=== PATIENT | male | born 1965 | race Caucasian/White ===

== ENCOUNTER 2016-10-11 15:07 | Emergency (ER) | payer SELFPAY ==
[2016-10-11 17:08] VITALS: BP 144/93
--- NOTE | 2016-10-11 18:41 | UC ---
jesus Arrieta Timothy, scribed for Allison Luu DO on 10/11/16 at 1601 . Headache HPI - HPI Summary HPI Summary: Quan Baker is a 51 yo male presenting to [facility] with intermittent 6/10 frontal PACHECO behind his eyes and trouble focusing his vision for the past 2-3 days. He states he feels "antsy and edgy". He states that he felt like his blood pressure was "racing" earlier. He has a strange feeling in his chest that he is struggling to describe "feels like it is working harder, I dont know how to explain it." He denies any blurry or double vision. He denies any fever, chills , sore throat, ear ache, CP, SOB. He states he has allergies, but is not experiencing Sx right now. He notes that he has had high blood pressure for the past 2 years, and has not changed blood pressure medications. He also notes that he has felt lightheaded when he stands up at baseline since he started htn meds 2 years ago. However, he stated that lightheadedness has been significantly worse over the past 2 days and constant. He states that he feels like he will faint. He notes that his [id number] dog nipped him on the back of his leg, but the dog is UTD on all shots. His MHx includes HTN, anxiety , seasonal allergies. - History Of Current Complaint Chief Complaint: UCHeadache Stated Complaint: TROUBLE FOCUSING, HEART IS RACING Time Seen by Provider: 10/11/16 16:06 Hx Obtained From: Patient Onset/Duration: Gradual Onset, Lasting Days, Still Present Onset Of Symptoms: Gradual Initially Headache Was: Initial Pain Scale(0-10)= - 6 Currently Pain Is: Current Pain Scale(0-10)= - 6 Pain Intensity: 6 Pain Scale Used: 0-10 Numeric Timing: Constant Character: Unable To Describe Location of Headache: Frontal - behind eyes Aggravating Factor: Nothing Allevating Factors: Nothing Associated Signs And Symptoms: Positive: Dizziness, Visual Changes - difficulty focusing, Other (Noted In Comments) - disoriented, trouble focusing - Allergies/Home Medications Allergies/Adverse Reactions: Allergies Allergy/AdvReac Type Severity Reaction Status Date / Time No Known Allergies Allergy Verified 10/11/16 17:45 PMH/Surg Hx/FS Hx/Imm Hx Cardiovascular History: Hypertension Psychological History: Anxiety - Surgical History Surgical History: None - Family History Known Family History: Positive: Cardiac Disease, Hypertension, Diabetes - Social History Occupation: Employed Full-time Alcohol Use: Rare Substance Use Type: None Smoking Status (MU): Never Smoked Tobacco Review of Systems Constitutional: Negative Skin: Negative Eyes: Other - difficulty focusing ENT: Negative Respiratory: Negative Cardiovascular: Negative Gastrointestinal: Negative Genitourinary: Negative Motor: Negative Neurovascular: Negative Musculoskeletal: Negative Neurological: Headache, Other - lightheadedness - baseline Psychological: Other - "antsy and edgy" All Other Systems Reviewed And Are Negative: Yes Physical Exam Triage Information Reviewed: Yes Appearance: Well-Appearing, No Pain Distress, Well-Nourished Vital Signs: Initial Vital Signs Temp 99.4 F 10/11/16 15:09 Pulse 78 10/11/16 15:09 Resp 20 10/11/16 15:09 BP 155/76 10/11/16 15:09 Pulse Ox 100 10/11/16 15:09 Vital Signs Reviewed: Yes Eyes: Positive: Conjunctiva Clear. Negative: Discharge ENT: Positive: Hearing grossly normal. Negative: Muffled/hoarse voice Neck exam: Normal Neck: Positive: Supple Respiratory: Positive: Lungs clear, Normal breath sounds, No respiratory distress Cardiovascular: Positive: RRR, No Murmur Musculoskeletal Exam: Normal Neurological: Positive: Alert, Muscle Tone Normal, Other: - A&Ox3, CN II-XII INTACT, SENSORY MOTOR INTACT, REFLEXES INTACT, NO CEREBELLAR SIGNS, FACIAL SYMMETRY, NEGATIVE ROMBERG, NORMAL GAIT Psychological Exam: Normal Psychological: Positive: Age Appropriate Behavior Skin Exam: Normal Skin: Positive: Other - warm, dry, normal color. Negative: rashes Diagnostics - EKG Cardiac Rate: NL - 1634: NSR @ 60 BPM, no ectopy, no ST changes, incomplete LBBB Ectopy: None Re-Evaluation - Re-Evaluation First Eval Re-Evaluation Time: 16:43 Change: Unchanged Comment: Discussed EKG and lab results with Pt. He is agreeable to current course of Tx. Headache Course/Dx - Course Course Of Treatment: Quan Baker is a 51 yo male presenting to [facility] with 6/10 frontal PACHECO behind his eyes and difficulty focusing his vision, accompanied by some lightheadedness which is his baseline. Pt BP noted at 155/76. Pt medication list reviewed this visit. His EKG suggests NSR with incomplete LBBB. After clinical examination and review of his EKG and lab studies, he was advised to present to [facility]. Pt was offered EMS for transport, which he declines. He will be transferred to [facility] by private car. - Differential Dx/Diagnosis Differential Diagnosis/HQI/PQRI: Other - anxiety, acs Provider Diagnoses: dizziness - Physician Notifications Discussed Patient Care With: Pastora Rizo - Discussed Pt condition, Pt will be seen at [facility] Time Discussed With Above Provider: 17:00 Instructed by Provider To: Transfer - to [facility] Discharge - Discharge Plan Condition: Stable Disposition: TRANS [facility]IGHER [facility] Discharge Disposition Comment: transfer to [facility] by private car Referrals: Carol Silverman MD [Primary Care Provider] - 2 Days Additional Instructions: Please follow up with your primary care physician regarding your visit to urgent care today. Return to urgent care or the emergency department with any new or recurring symptoms. The documentation as recorded by the jesus banks Timothy accurately reflects the service I personally performed and the decisions made by me, Allison Luu DO.
== END 2016-10-11 17:09 | disposition short-term general hospital (02) ==
LOC: UCEAST 15:07
DX: R42 Dizziness and giddiness (principal); I10 Essential (primary) hypertension; F41.9 Anxiety disorder, unspecified; J30.2 Other seasonal allergic rhinitis
CPT/HCPCS: 81003; 93005; 99212; G0463

== ENCOUNTER 2016-10-11 17:36 | Emergency (ER) | payer SELFPAY ==
[2016-10-11 21:43] LABS: Hematocrit 49 % (42-52); Hemoglobin 16.5 g/dl (14.0-18.0); Mean Corpuscular HGB Conc 34 g/dl (31-36); Mean Corpuscular Hemoglobin 30 pg (27-31); Mean Corpuscular Volume 87 fL (80-94); Mean Platelet Volume 8 um3 (7.4-10.4); Red Blood Count 5.57 10^6/ul (4.0-5.4); Red Cell Distribution Width 13 % (10.5-15); White Blood Count 9.5 10^3/ul (3.5-10.8)
[2016-10-11 22:01] LABS: Albumin 4.4 g/dL (3.2-5.2); BUN/Creatinine Ratio 15.9 (8-20); Calcium 9.8 mg/dL (8.6-10.3); EGFR African American 94.5 (>60); EGFR Non-African American 73.5 (>60); Globulin 3.1 g/dL (2-4); Magnesium 1.8 mg/dL (1.9-2.7); Potassium 3.6 mmol/L (3.5-5.0); Total Bilirubin 0.7 mg/dL (0.2-1.0); Total Protein 7.5 g/dL (6.4-8.9)
[2016-10-11 22:26] LABS: TSH (Thyroid Stimulating Horm) 2.23 mcIU/mL (0.34-5.60)
[2016-10-11 22:37] VITALS: BP 127/69
[2016-10-11] MEDS ORDERED: Potassium Chlor TAB* 20 MEQ TAB.ER PO ONE (22:47)
[2016-10-11] MEDS ORDERED: Magnesium Oxide TAB* 400 MG PO ONE (22:47)
--- NOTE | 2016-10-11 22:51 | ED ---
José Arrieta Alfonso, scribed for Holly Lujan MD on 10/11/16 at 2108 . Complex/Multi-Sys Presentation - HPI Summary HPI Summary: This patient is a 51 year old M presenting to [facility] with a chief complaint of it is hard for me to focus since 1430 today. The CC is worse today. Pt rates the pain 0/10 in severity. Symptoms alleviated by eating and drinking. Pt reports frontal headache, lightheadedness, blurry vision secondary to exertion, and urinary retention. Pt denies CP, fever, and chills. Patient lives alone. PCP is Dr. Carol Silverman. PMHx of HTN. - History Of Current Complaint Chief Complaint: EDGeneral Time Seen by Provider: 10/11/16 20:51 Hx Obtained From: Patient Onset/Duration: Sudden Onset, Lasting Hours - 1430 today, Still Present Timing: Constant Severity Currently: Moderate Severity Initially: Moderate Alleviating Factor(s): eating and drinking Associated Signs And Symptoms: Positive: Other - . Pt reports frontal headache, lightheadedness, blurry vision secondary to exertion, and urinary retention. Pt denies CP, fever, and chills. - Allergies/Home Medications Allergies/Adverse Reactions: Allergies Allergy/AdvReac Type Severity Reaction Status Date / Time No Known Allergies Allergy Verified 10/11/16 17:45 PMH/Surg Hx/FS Hx/Imm Hx Cardiovascular History: Reports: Hx Hypertension Denies: Hx Congestive Heart Failure Sensory History: Denies: Hx Deafness Opthamlomology History: Denies: Hx Legally Blind Infectious Disease History: No Infectious Disease History: Denies: Hx Clostridium Difficile, Hx Hepatitis, Hx Human Immunodeficiency Virus (HIV), Hx of Known/Suspected MRSA, Hx Shingles, Hx Tuberculosis, Hx Known/ Suspected VRE, Hx Known/Suspected VRSA, History Other Infectious Disease, Traveled Outside the [place] in Last 30 Days - Family History Known Family History: Positive: Cardiac Disease, Hypertension, Diabetes - Social History Lives: Alone Alcohol Use: Rare Substance Use Type: Reports: None Smoking Status (MU): Never Smoked Tobacco Review of Systems Negative: Fever, Chills Positive: Blurred Vision - secondary to exertion Negative: Chest Pain Positive: other - Positive urinary retention. Neurological: Other - Positive frontal headache, and lightheadedness. All Other Systems Reviewed And Are Negative: Yes Physical Exam Triage Information Reviewed: Yes Vital Signs On Initial Exam: Initial Vitals Temp Pulse Resp BP Pulse Ox 98.2 F 54 16 155/92 100 10/11/16 17:40 10/11/16 17:40 10/11/16 17:40 10/11/16 17:40 10/11/16 17:40 Vital Signs Reviewed: Yes Appearance: Positive: Well-Appearing, No Pain Distress Skin: Positive: Warm, Skin Color Reflects Adequate Perfusion, Dry Eyes: Positive: EOMI, MARY ENT: Positive: Pharynx normal, TMs normal Neck: Positive: Supple, Nontender Respiratory/Lung Sounds: Positive: Clear to Auscultation, Breath Sounds Present. Negative: Rales, Rhonchi, Wheezes Cardiovascular: Positive: RRR, Other - No gallop. Negative: Murmur, Rub Abdomen Description: Positive: Nontender, Soft, Other: - No rebound. Negative: Distended, Guarding Bowel Sounds: Positive: Present Musculoskeletal: Positive: Strength/ROM Intact, Other - No edema Neurological: Positive: Sensory/Motor Intact, Alert, Oriented to Person Place, Time, CN Intact II-III - 2-12 Psychiatric: Positive: Affect/Mood Appropriate - Humberto Coma Scale Coma Scale Total: 15 Diagnostics - Vital Signs Vital Signs Temp Pulse Resp BP Pulse Ox 10/11/16 20:12 67 93 10/11/16 19:40 98.6 F 55 16 159/87 100 10/11/16 17:40 98.2 F 54 16 155/92 100 - Laboratory Lab Results: Lab Results 10/11/16 10/11/16 Range/Units 21:30 21:30 WBC 9.5 (3.5-10.8) 10^3/ul RBC 5.57 H (4.0-5.4) 10^6/ul Hgb 16.5 (14.0-18.0) g/dl Hct 49 (42-52) % MCV 87 (80-94) fL MCH 30 (27-31) pg MCHC 34 (31-36) g/dl RDW 13 (10.5-15) % Plt Count 205 (150-450) 10^3/ul MPV 8 (7.4-10.4) um3 Neut % (Auto) 74.6 (38-83) % Lymph % (Auto) 18.8 L (25-47) % [place] % (Auto) 5.0 (1-9) % Eos % (Auto) 0.7 (0-6) % Baso % (Auto) 0.9 (0-2) % Absolute Neuts (auto) 7.1 (1.5-7.7) 10^3/ul Absolute Lymphs (auto) 1.8 (1.0-4.8) 10^3/ul Absolute Monos (auto) 0.5 (0-0.8) 10^3/ul Absolute Eos (auto) 0.1 (0-0.6) 10^3/ul Absolute Basos (auto) 0.1 (0-0.2) 10^3/ul Absolute Nucleated RBC 0 10^3/ul Nucleated RBC % 0 Sodium 137 (133-145) mmol/L Potassium 3.6 (3.5-5.0) mmol/L Chloride 100 L (101-111) mmol/L Carbon Dioxide 29 (22-32) mmol/L Anion Gap 8 (2-11) mmol/L BUN 17 (6-24) mg/dL Creatinine 1.07 (0.67-1.17) mg/dL Est GFR ( Amer) 94.5 (>60) Est GFR (Non-Af Amer) 73.5 (>60) BUN/Creatinine Ratio 15.9 (8-20) Glucose 92 (70-100) mg/dL Calcium 9.8 (8.6-10.3) mg/dL Magnesium 1.8 L (1.9-2.7) mg/dL Total Bilirubin 0.70 (0.2-1.0) mg/dL AST 22 (13-39) U/L ALT 22 (7-52) U/L Alkaline Phosphatase 55 (34-104) U/L Troponin I 0.00 (<0.04) ng/mL Total Protein 7.5 (6.4-8.9) g/dL Albumin 4.4 (3.2-5.2) g/dL Globulin 3.1 (2-4) g/dL Albumin/Globulin Ratio 1.4 (1-3) TSH 2.23 (0.34-5.60) mcIU/mL Result Diagrams: 10/11/16 21:30 10/11/16 21:30 Lab Statement: Any lab studies that have been ordered have been reviewed, and results considered in the medical decision making process. - EKG 1755 Cardiac Rate: NL - BPM 66 EKG Rhythm: Sinus Rhythm EKG Interpretation: No Q-waves. No ST elevation Complex Multi-Symp Course/Dx Course Of Treatment: 51 yo male with not feeling well/ almost a near syncope feeling with normal labs slightly borderline low potassium and low mag both of which were repleted no headache no chest pain pt will followup with pmd - Diagnoses Provider Diagnoses: Malaise Discharge - Discharge Plan Condition: Stable Disposition: HOME Referrals: Carol Silverman MD [Primary Care Provider] - The documentation as recorded by the José banks Alfonso accurately reflects the service I personally performed and the decisions made by me, Holly Lujan MD.
== END 2016-10-11 23:16 | disposition home or self-care (01) ==
LOC: ED 17:36
DX: H53.8 Other visual disturbances (principal); R53.81 Other malaise
CPT/HCPCS: 36415; 80053; 83735; 84443; 84484; 85025; 93005; 99283; A9270-GY

== ENCOUNTER 2017-08-10 08:17 | Emergency (ER) | payer SELFPAY ==
[2017-08-10 08:32] VITALS: BP 140/88
--- NOTE | 2017-08-10 09:30 | UC ---
Skin Complaint HPI - HPI Summary HPI Summary: tick bite right abd removed and tick brought in - History of Current Complaint Chief Complaint: UCSkin Time Seen by Provider: 08/10/17 09:09 Stated Complaint: TICK BITE Hx Obtained From: Patient Onset Severity: Mild Current Severity: None Pain Intensity: 0 Pain Scale Used: 0-10 Numeric Location: Other - see HPI Aggravating Factor(s): Nothing Alleviating Factor(s): Nothing - Allergy/Home Medications Allergies/Adverse Reactions: Allergies Allergy/AdvReac Type Severity Reaction Status Date / Time No Known Allergies Allergy Verified 08/10/17 08:26 Home Medications: Home Medications Loratadine/Pseudoephedrine [Claritin-D 24 Hour Tablet] 1 tab PO DAILY PRN [History Confirmed 08/10/17] Review of Systems Constitutional: Negative Skin: Negative Eyes: Negative ENT: Negative Respiratory: Negative Cardiovascular: Negative Gastrointestinal: Negative Genitourinary: Negative Motor: Negative Neurovascular: Negative Musculoskeletal: Negative Neurological: Negative Psychological: Negative Is Patient Immunocompromised?: No All Other Systems Reviewed And Are Negative: Yes PMH/Surg Hx/FS Hx/Imm Hx Previously Healthy: Yes Cardiovascular History: Hypertension - Surgical History Surgical History: None - Family History Known Family History: Positive: Cardiac Disease, Hypertension, Diabetes - Social History Alcohol Use: Rare Substance Use Type: None Smoking Status (MU): Never Smoked Tobacco Physical Exam Triage Information Reviewed: Yes Appearance: Well-Appearing, No Pain Distress, Well-Nourished Vital Signs: Initial Vital Signs Temp 98.3 F 08/10/17 08:28 Pulse 63 08/10/17 08:28 Resp 18 08/10/17 08:28 BP 140/88 08/10/17 08:28 Pulse Ox 98 08/10/17 08:28 Vital Signs Reviewed: Yes Eyes: Positive: Conjunctiva Clear ENT: Positive: Hearing grossly normal. Negative: Nasal congestion, Nasal drainage, Trismus, Muffled voice, Hoarse voice Neck: Positive: Nontender, No Lymphadenopathy Respiratory: Positive: Lungs clear, Normal breath sounds, No respiratory distress Cardiovascular: Positive: RRR, No Murmur Musculoskeletal: Positive: ROM Intact, No Edema Neurological: Positive: Alert Psychological Exam: Normal Skin Exam: Other - many mole - one dark/irregular/black one on left breast that appears suspicous advised to see restrike hammer operator Course/Dx - Course Course Of Treatment: tick -nymph form /engorged - Diagnoses Provider Diagnoses: tick bite Discharge - Sign-Out/Discharge Documenting (check all that apply): Discharge/Admit/Transfer - Discharge Plan Condition: Stable Disposition: HOME Prescriptions: DOXYcycline CAP(*) [DOXYcycline 100MG CAP(*)] 200 mg PO ONCE #2 cap Patient Education Materials: Tick Bite (ED) Referrals: Carol Silverman MD [Primary Care Provider] - If Needed Vijaya Burns [Medical Doctor] - 2 Weeks Additional Instructions: due to all your moles I suggest you see a restrike hammer operator to have them looked at and for yearly visits - Billing Disposition and Condition Condition: STABLE Disposition: HOME
== END 2017-08-10 09:33 | disposition home or self-care (01) ==
LOC: UCEAST 08:17
DX: S30.861A Insect bite (nonvenomous) of abdominal wall, initial encounter (principal); W57.XXXA Bitten or stung by nonvenomous insect and other nonvenomous arthropods, initial encounter; Y93.9 Activity, unspecified; Y92.9 Unspecified place or not applicable; I10 Essential (primary) hypertension
CPT/HCPCS: 99212; G0463